=== PATIENT | female | born 1960 | race Caucasian/White ===

== ENCOUNTER 2018-04-12 08:28 | Inpatient (IN) ==
[2018-04-12] MEDS ORDERED: NS 1,000 ML IV ONE ×2 (09:07→18:00)
[2018-04-12] MEDS ORDERED: INSULIN REGULAR, HUMAN 100 UNIT/ML INJECTION IVP ONE (09:09)
--- NOTE | 2018-04-12 09:12 | Emergency Department Report ---
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 Pt was at [facility] earlier today, when she got into a verbal altercation with a co-worker. Pt became dyspneic, had palpitations, and her vision darkened. She has had sx like this before; several months ago, she had a similar incident and a subsequent cath, without significant disease. Recently, pt has had similar sx; she is under a lot of stress at home and work. 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 MD complaint: chest pain Occurred At: work Onset (ago): minute(s) Duration: now resolved Onset: during exertion Severity: similar to previous episodes Relieving factors: rest Exacerbating factors: exertion Treatments prior to arrival chest pain: none - Related Data On Oral Contraceptives: No Home Medications Medication Instructions Recorded Confirmed Insulin Glargine,Hum.rec.anlog 60 unit SQ DAILY #0 02/04/11 04/12/18 [Lantus] Aspirin [Adult Aspirin Regimen] 81 mg PO DAILY 04/12/18 04/12/18 Chlorthalidone [Hygroton] 25 mg PO DAILY 04/12/18 04/12/18 Insulin Aspart [NovoLOG] 9 - 15 unit SQ TIDWM 04/12/18 04/12/18 Liraglutide [Victoza 3-Johnny] 1 dose SQ DAILY 04/12/18 04/12/18 Lisinopril [Prinivil] 40 mg PO DAILY 04/12/18 04/12/18 Lovastatin [Mevacor] 40 mg PO HS 04/12/18 04/12/18 Paroxetine [Paxil] 20 mg PO HS 04/12/18 04/12/18 Allergies Allergy/AdvReac Type Severity Reaction Status Date / Time Penicillins Allergy Unknown Verified 04/12/18 08:35 Review of Systems All systems: reviewed and negative except as stated Cardiovascular: Reports: as per HPI, chest pain, palpitations, dyspnea on exertion, syncope. Denies: orthopnea, edema, paroxysmal nocturnal dyspnea Neurological: Reports: as per HPI, other (Pre-syncope). Denies: headache, weakness, numbness, paresthesias, confusion, abnormal gait, vertigo [facility] Medical History Updates: HTN. HL. DM. Depression Physical Exam - Limitations Limitations: no limitations - General General appearance: alert, in no apparent distress, obese (Morbid) - Normal Exams: Head:: Normocephalic without trauma Eyes:: Pupils are PERRLA w/ EOMI, No scleral icterus, irritation, or foreign bodies noted ENMT:: No facial trauma, nasal exudates, pharyngeal erythema, or exudates are noted Neck:: Full range of motion, without adenopathy Lymphatic:: No lymphadenopathy Musculoskeletal:: No tenderness, or deformity noted Integumentary:: No rashes, hives, or bruising noted Neurological:: Patient is alert, and oriented - Chest Chest inspection: Present: normal inspection, symmetric chest wall rise. Absent : tenderness - Respiratory Respiratory exam: Present: normal lung sounds bilaterally. Absent: respiratory distress, wheezes, stridor, prolonged expiratory phase, crackles - Cardiovascular Cardiovascular exam: Present: bradycardia, irregular rhythm, normal heart sounds. Absent: regular rate, normal rhythm, rubs, gallop, clicks - Abdominal Exam Abdominal exam: Present: soft, normal bowel sounds. Absent: distention, tenderness, guarding, rebound, rigidity Course - Consultations Consultation #1: Dr. Toussaint: Admit pt obs for further workup. Time: 10:10 Vital Signs Temperature 98.7 F 04/12/18 08:29 Pulse Rate 48 L 04/12/18 08:29 Respiratory Rate 27 H 04/12/18 08:29 Blood Pressure 186/68 H 04/12/18 08:29 Pulse Oximetry 97 04/12/18 08:29 Temperature 98.7 F 04/12/18 08:29 Pulse Rate 48 L 04/12/18 08:29 Respiratory Rate 27 H 04/12/18 08:29 Blood Pressure 186/68 H 04/12/18 08:29 Pulse Oximetry 97 04/12/18 08:29 Chest Pain - MDM Narrative Medical decision making narrative: Pt with new-onset Mobitz II heartblock and RBB. After discussion with cardiology , will admit for further workup. - Differential Diagnosis Likely: pneumothorax, stable angina, unstable angina pectoris, atypical chest pain, costochondritis, chest pain, biliary colic - Medical Records Data Attestation: I reviewed the patient's medical records. - Lab Data Attestation: I reviewed the patient's lab results. Result diagrams: 04/12/18 08:58 04/12/18 08:58 Lab Results 04/12/18 Range/Units 08:55 Glucometer 357 (65-110) mg/dL - Radiology Data Attestation: I reviewed the patient's radiology results. CXR: Impression: No acute cardiopulmonary abnormality. - EKG Data EKG #1 EKG attestation: Yes: I reviewed and interpreted this EKG. EKG shows normal: sinus rhythm, axis, QRS complexes, ST-T waves Rate: bradycardia Heart block present: Mobitz 2 (1:1 and 2:1 block) Disposition Clinical Impression: Mobitz II, RBBB Disposition: 02 To [facility] Print Language: Portuguese Condition: Improved Prescriptions: No Action Lovastatin [Mevacor] 40 mg PO HS Aspirin [Adult Aspirin Regimen] 81 mg PO DAILY Insulin Aspart [NovoLOG] 9 - 15 unit SQ TIDWM Lisinopril [Prinivil] 40 mg PO DAILY Chlorthalidone [Hygroton] 25 mg PO DAILY Insulin Glargine,Hum.rec.anlog [Lantus] 60 unit SQ DAILY #0 Paroxetine [Paxil] 20 mg PO HS Liraglutide [Victoza 3-Johnny] 1 dose SQ DAILY Referrals: Donnell Almeida DO [Primary Care Provider] - Time of Disposition: 10:27 - Seen By: physician
[2018-04-12] MEDS: SALINE FLUSH 10ml SYRINGE IVF PRN (09:18)
--- NOTE | 2018-04-12 10:09 | XRay Report ---
Indication: Dysrhythmia XR chest 1V: Comparison: None Technique: AP portable upright chest Findings: Patient showed normal heart, mediastinum and central vascularity. Lungs are clear. No acute bony findings are seen although patient does shows some mild hypertrophic bony changes in the mid and lower thoracic spine. Impression: No acute cardiopulmonary abnormality. .
--- NOTE | 2018-04-12 11:06 | Cardiology History & Physical ---
History of Present Illness Chief complaint: chest pain HPI: Annamaria is a 57 year old woman who presented to the ED this morning for evaluation of chest pain. She was working at [employer] earlier today, when she got into a verbal altercation with a co-worker. She became dyspneic, had palpitations, and her vision darkened. She has had symptoms like this before; several months ago, she had a similar incident and a subsequent cath, without significant disease. She reportedly is under a lot of stress at home and work. 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 EKG revealed 2:1 heart block, Dr. Toussaint was contacted for outpatient admission for possible permanent pacemaker insertion. She denies recent illness, fever, chills, cough, sore throat, N/V/D, dysuria. States she is to have a CT scan for an umbilical hernia repair. Review of Systems - Constitutional Constitutional: Absent: chills, fatigue, fever(s) - EENMT Eyes: Absent: change in vision Balance: Absent: vertigo Mouth/Throat: Absent: sore throat - Cardiovascular Cardiovascular: Present: chest pain, palpitations, syncope (near), dyspnea on exertion. Absent: orthopnea, edema, heart murmur Rhythm: Absent: abnormal rhythm Vascular: Absent: pedal edema - Respiratory Respiratory: Present: dyspnea on exertion. Absent: cough - Gastrointestinal Gastrointestinal: Absent: abdominal pain, constipation, diarrhea, nausea, vomiting - Genitourinary Genitourinary: Absent: dysuria - Integumentary/Breasts Integumentary: Absent: rash - Neurological Neurological: Absent: dizziness - Endocrine Endocrine: Present: palpitations [facility] Medical History Updates: HTN. HL. DM. Depression Surgical History: hysterectomy Family History: Mother - [place], cause of in her 50s No family history of arrhythmias/ PPMs - Social History Smoking status: Never smoker Substance use type: does not use Alcohol intake frequency: does not drink Household members: spouse Current occupational status: employed Current residence: Apartment/Private Home Medications Home Medications Medication Instructions Recorded Confirmed Type Insulin Glargine,Hum.rec.anlog 60 unit SQ DAILY #0 02/04/04/12/18 History [Lantus] Aspirin [Adult Aspirin Regimen] 81 mg PO DAILY 04/12/18 04/12/18 History Chlorthalidone [Hygroton] 25 mg PO DAILY 04/12/18 04/12/18 History Insulin Aspart [NovoLOG] 9 - 15 unit SQ TIDWM 04/12/18 04/12/18 History Liraglutide [Victoza 3-Johnny] 1 dose SQ DAILY 04/12/18 04/12/18 History Lisinopril [Prinivil] 40 mg PO DAILY 04/12/18 04/12/18 History Lovastatin [Mevacor] 40 mg PO HS 04/12/18 04/12/18 History Paroxetine [Paxil] 20 mg PO HS 04/12/18 04/12/18 History CephALEXin [Keflex 500 mg] 500 mg PO Q12HR #10 cap 04/14/18 Rx Metoprolol Tartrate [Lopressor] 12.5 mg PO BIDWM #30 tab 04/14/18 Rx Minocycline [Minocin] 100 mg PO BID #14 cap 04/14/18 Rx Nitroglycerin [Nitrostat] 0.4 mg SL Q5M PRN #25 tab 04/14/18 Rx Allergies Allergy/AdvReac Type Severity Reaction Status Date / Time Penicillins Allergy Unknown Verified 04/12/18 08:35 Exam Vital signs: Temperature 98.7 F 04/12/18 08:29 Pulse Rate 42 L 04/12/18 10:45 Respiratory Rate 11 04/12/18 10:45 Blood Pressure 161/67 H 04/12/18 10:45 Pulse Oximetry 100 04/12/18 10:45 - Constitutional no acute distress, obese, cooperative - Routine HEENT Exam Head: Present: normocephalic ENT: Present: mucous membranes dry - Routine Neck Exam Absent: JVD, carotid bruit - Routine Chest/Breast/Axilla Exam Chest wall: Absent: tenderness, pacemaker - Routine Respiratory Exam Present: CTA bilaterally, diminished air movement. Absent: dyspnea - Routine Cardiovascular Exam Present: no murmur, bradycardia - Routine Abdominal Exam Present: soft, non tender - Routine Extremities Exam Present: no edema, pulses intact - Routine Skin Exam Present: intact, dry, warm - Routine Neurological Exam Present: alert, oriented X3 - Routine Psychiatric Exam Present: normal affect, normal thought process Results 04/14/18 04:00 04/14/18 04:00 - Imaging and Cardiology Imaging & Cardiology Narrative: Date of Exam: 04/12/18 Ordering Provider: Augustus Santiago DO Type of Exam(s): XR chest 1V Reason for Exam(s): Dysrhythmia Indication: Dysrhythmia XR chest 1V: Comparison: None Technique: AP portable upright chest Findings: Patient showed normal heart, mediastinum and central vascularity. Lungs are clear. No acute bony findings are seen although patient does shows some mild hypertrophic bony changes in the mid and lower thoracic spine. Impression: No acute cardiopulmonary abnormality. 04/12/18 11:09 EKG interpretations - Blocks, axis, hypertrophy, ST abn AV and intraventricular conduction: 2 to 1 AV block, right bundle branch block ( fixed/intermittent, complete/incomplete) Hospital Course This is a general summary of the patient's hospital course. For more details refer to the complete medical record. Time spent with patient: 25 - 35 minutes Resuscitation Status: Full Code Assessment and Plan - Attestation Attestation Narrative: 04/14/18 18:12 Recommendation After examining the patient I agree with the above assessment. I am involved in the formulation of the patient's plan of care. - Assessment and Plan (1) Second-degree heart block Current visit: Yes Status: Acute 2:1 second degree heart block - Hemodynamically stable, admit to the Surgical unit - Keep NPO for dual chamber PPM this after noon - No BB or CCB - Monitor cardiac telemetry (2) Essential (primary) hypertension Current visit: Yes Status: Chronic suboptimal control - Hydralazine 10mg IV q6h prn systolic BP>180 - will continue Lisinopril 40mg and Chlorthalidone 25mg post PPM (3) Mixed hyperlipidemia Current visit: Yes Status: Chronic Continue Lovastatin, PCP manages (4) Type 2 diabetes mellitus without complications Current visit: Yes Status: Chronic Continue Lantus and Victoza post PPM - BGMs as taken at home
[2018-04-12 11:30] VITALS: BMI 40.8
[2018-04-12] MEDS ORDERED: HYDRALAZINE 20 MG/ML INJECTION IVP PRN (11:37)
[2018-04-12] MEDS ORDERED: HEPARIN 1,000 UNITS/500 ML PREMIX (*CVL ONLY*) IV ONE (16:59)
[2018-04-12] MEDS ORDERED: LIDOCAINE 1% (10mg/ml) 30ml SDV INJ ONE (17:00)
[2018-04-12] MEDS ORDERED: MIDAZOLAM 2mg/2ml INJECTION ONE (17:10)
[2018-04-12] MEDS ORDERED: FentaNYL 100 MCG/2 ML INJECTION ONE (17:10)
[2018-04-12] MEDS ORDERED: HEPARIN 1,000unit/ml INJECTION 10ml ONE (17:11)
[2018-04-12] MEDS ORDERED: Verapamil 5 MG/2 ML VIAL ONE (17:11)
[2018-04-12] MEDS ORDERED: NITROGLYCERIN 50MG INJECTION IV ONE (17:11)
[2018-04-12] MEDS ORDERED: NS 1,000 ML ONE (17:25)
[2018-04-12] MEDS ORDERED: NITROGLYCERIN 0.4 MG SUBLINGUAL TABLET SL PRN (18:09)
[2018-04-12] MEDS ORDERED: BISACODYL 10 MG SUPPOSITORY RECTALLY PRN (18:09)
[2018-04-12] MEDS ORDERED: MORPHINE SULFATE 4mg INJECTION IVP PRN ×2 (18:09)
[2018-04-12] MEDS ORDERED: LORazepam 0.5 MG TABLET PO PRN (18:09)
[2018-04-12] MEDS ORDERED: ATROPINE 1 MG/ML INJECTION IVP PRN (18:09)
[2018-04-12] MEDS ORDERED: HYDROCODONE/APAP 5mg/325mg TABLET PO PRN (18:09)
[2018-04-12] MEDS ORDERED: ONDANSETRON 4 MG/2 ML INJECTION IVP PRN (18:09)
[2018-04-12] MEDS ORDERED: MAG-AL + SIM ORAL LIQUID 30ml PO PRN (18:09)
[2018-04-12] MEDS ORDERED: METOCLOPRAMIDE 10mg/2ml INJECTION IVP PRN (18:09)
[2018-04-12] MEDS ORDERED: PROMETHAZINE 25 MG INJECTION IVP PRN (18:09)
[2018-04-12] MEDS ORDERED: Bisacodyl EC TAB 5 MG TABLET PO PRN (18:09)
[2018-04-12] MEDS: INSULIN ASPART 100unit/ml INJECTION SQ SCH (18:26)
[2018-04-12] MEDS: ACETAMINOPHEN 325 MG TABLET PO PRN (18:43)
[2018-04-12] MEDS: PAROXETINE 20 MG TABLET PO SCH (21:27)
[2018-04-12] MEDS: LOVASTATIN 40 MG TABLET PO SCH (21:27)
--- NOTE | 2018-04-13 07:39 | Echocardiogram ---
DATE OF PROCEDURE: April 12, 2016 This is a two-dimensional echo with spectral Doppler, color-flow and M-mode. It was obtained in a patient with heart block and non-STEMI. Left atrial dimension is normal. Left ventricular end-diastolic dimension is normal. Left ventricle wall thickness is increased. LV systolic function is normal with ejection fraction of 57%. Right atrium is normal. Right ventricle is normal. Aortic root dimension is normal. Mitral valve is morphologically normal with mild mitral regurgitation. Aortic valve shows fibrocalcific changes with no stenosis. Qzcy-mi-rihszqbt aortic insufficiency is present. Tricuspid valve shows mild tricuspid regurgitation with moderate pulmonary hypertension with estimated pulmonary artery systolic pressure of 50. Pulmonary valve shows trace of pulmonary insufficiency. There is no pericardial effusion. IMPRESSION 1. Normal LV systolic function with ejection fraction of 57%. 2. Mild left ventricular hypertrophy. 3. Mild mitral regurgitation. 4. Aortic sclerosis with [id number]-[id number] aortic insufficiency. 5. Mild tricuspid regurgitation with moderate pulmonary hypertension with estimated pulmonary artery systolic pressure of 50. 6. Trace of pulmonary insufficiency. MTDD
--- NOTE | 2018-04-13 07:48 | Cardiac Catheterization Report ---
DATE OF PROCEDURE April 12, 2018 The patient is a 57-year-old lady who was admitted with chest pressure, tightness and a heart block and ruled in for non-STEMI and was referred for further evaluation by cardiac catheterization and possible intervention. Informed consent was obtained after explaining the procedure and the potential risks to the patient who agreed to proceed with the procedure. PROCEDURE 1. Left heart catheterization. 2. Coronary angiography. 3. Left ventriculography. TECHNIQUE The patient was prepped and draped in the usual sterile techniques. Conscious sedation was performed using Versed and fentanyl. 1% lidocaine was used for local anesthesia. Using modified Seldinger technique, arterial access was obtained into the right radial artery with placement of a 6-Zambian arterial sheath. LEFT VENTRICULOGRAPHY Left ventriculography in single-plane ESPITIA shallow projection showed anteroapical akinesia with ejection fraction of about 40% with no mitral regurgitation or gradient across the aortic valve. LVEDP was about 8. CORONARY ANGIOGRAPHY Left main was short and free of significant lesions and bifurcated into left anterior descending and left circumflex arteries. Left anterior descending artery was a vkhql-vv-[id number] caliber vessel which had diffuse irregularities in mid segment with about 20-30% stenosis. Diagonals were small with no significant lesions. Left circumflex artery was nondominant with diffuse disease in mid segment of up to about 30% stenosis. It was nondominant. Right coronary artery was dominant and a [id number] caliber vessel with about 30 % mid stenosis. The patient tolerated the procedure well with no complications. IMPRESSION 1. Anteroapical akinesia with ejection fraction of about 40%. 2. Mild coronary artery disease as described above. PLAN Medical management. SAIMA
[2018-04-13] MEDS: INSULIN ASPART 100unit/ml INJECTION SQ SCH ×3 (07:59→17:06)
[2018-04-13] MEDS ORDERED: NS FLUSH BAG 500ml IV PRN (09:15)
[2018-04-13] MEDS: SALINE FLUSH 10ml SYRINGE IVF PRN (09:16)
--- NOTE | 2018-04-13 09:16 | Consult Note ---
Consult Information - Data of Consult Consult date: 04/13/18 Requesting Physician: Placido Toussaint MD Primary Care Provider: Donnell Almeida DO Family Provider: Dr Almeida - Consult Narrative Reason for consult: UTI History of present illness: And is a 57-year-old female who presented to the emergency room yesterday for evaluation of chest pain. She had had a verbal altercation with a coworker that triggered shortness of breath, palpitations and chest pain. She had acute evaluation in the emergency room and was found to have a new onset Mobitz 2 heart block with a right bundle branch block. She was admitted under Dr. Toussaint for further cardiac care. Have elevation in troponin course of the afternoon will result in the left cardiac catheterization. This revealed mild coronary artery disease, ECHO showed ER 57%. Plan for pacemaker placement of pacemaker today. She was noted to have bacteriuria, and urine culture did reveal Escherichia coli. Given this finding, the hospitalist services were consult could for medical evaluation and recommendations. Studies from today are reviewed, white count is normal at 7.9, chemistry panel overall unremarkable. Glucose has been elevated intermittently, can sugar this morning was 205. Past Medical History Medical History Updates: Hypertension. Diabetes. Hyperlipidemia. 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 history: PCP Dr Almeida Review of Systems All systems PM: 10-point ROS was reviewed, no additional remarkable complaints except Review of systems: Denies ROS Medications Home Medications Medication Instructions Recorded Confirmed Type Insulin Glargine,Hum.rec.anlog 60 unit SQ DAILY #0 02/04/11 04/12/18 History [Lantus] Aspirin [Adult Aspirin Regimen] 81 mg PO DAILY 04/12/18 04/12/18 History Chlorthalidone [Hygroton] 25 mg PO DAILY 04/12/18 04/12/18 History Insulin Aspart [NovoLOG] 9 - 15 unit SQ TIDWM 04/12/18 04/12/18 History Liraglutide [Victoza 3-Johnny] 1 dose SQ DAILY 04/12/18 04/12/18 History Lisinopril [Prinivil] 40 mg PO DAILY 04/12/18 04/12/18 History Lovastatin [Mevacor] 40 mg PO HS 04/12/18 04/12/18 History Paroxetine [Paxil] 20 mg PO HS 04/12/18 04/12/18 History Allergies Allergy/AdvReac Type Severity Reaction Status Date / Time Penicillins Allergy Unknown Verified 04/12/18 08:35 Exam Vital Signs: Temperature 97.8 F 04/13/18 07:57 Pulse Rate 53 L 04/13/18 07:57 Respiratory Rate 16 04/13/18 07:57 Blood Pressure 135/67 04/13/18 07:57 Pulse Oximetry 96 04/13/18 07:57 Height/Weight/BMI: Height 1.73 m Weight 120.6 kg Body Mass Index 40.8 - Constitutional Present: no acute distress, well nourished, well developed - Routine HEENT Exam Eye: Present: EOMI ENT: Present: mucous membranes moist, dentition normal - Routine Respiratory Exam Present: CTA bilaterally. Absent: wheezes - Routine Cardiovascular Exam Present: RRR, S1, S2. Absent: murmur - Routine Abdominal Exam Present: soft, normoactive bowel sounds, non distended. Absent: tenderness - Routine Extremities Exam Present: no edema, pulses intact - Routine Back/Spine/Pelvis Exam Back/Spine: Present: full ROM - Routine Skin Exam Present: intact, dry, warm - Routine Neurological Exam Present: alert, oriented X3, CN II-XII intact, moving all extremities - Routine Psychiatric Exam Present: normal affect, normal thought process, cooperative Results - Labs CBC & Chem 7: 04/13/18 04:18 04/13/18 04:18 Microbiology Results: Microbiology 04/12/18 10:55 Urine, Voided (Cc/notcc) Urine Culture - Preliminary Escherichia coli Assessment and Plan (1) Fernandoitz II Current visit: Yes Status: Acute Assessment and Plan: Impression UTI- E-Coli No evidence of SIRS/Sepsis at this time Leukocytosis (POA) - resolved Mobitz II New RBBB Elevated Troponin DM HTN Hyperlipidemia Morbid obesity Plan Cardiology care as per Dr Toussaint. At this point they are planning for placement of Pacemaker. Although patient repots she is asymptomatic regarding bacteruria however, will initiate treatment as she is having invasive procedure today. Obtain Blood cultures x2 and Start Rocephin 1 gm IV daily for treatment. Check on pending urine culture. No evidence of acute sepsis process- No Leukocytosis or fever. Obtain Hgb A1C given hyperglycemia. Continue on Novalog with meals, Victoza, Lantus 60 units daily. Case reviewed with attending, Dr Krishna The hospitalist service will continue to follow patishira during her stay at [facility]. At time of discharge medical care will return to PCP Dr Almeida at [facility]. - Physician Narrative Physician: Lee Krishna MD Narrative: Date: 04/13/18 Time: 1429 Have independently interviewed and examined pt. Chart reviewed. Case discussed with my HULL AND DECK REMOVER. Care plan developed with my supervision; agree with above. Back from pacemaker placement-tolerated procedure well. Notes discomfort to shoulder from pacemaker placement. Breathing feels well-not short of breathing or congested. Slight nausea but no ab pain. No f/c. Lungs: decreased, no distress CV: regular AB: soft obese nt MSE: awake alert appropriate Plan: Rocephin given for urinary coverage-check C/S. No signs of SIRS/sepsis. Recheck CBC in am. Hospital Course Summary Disclaimer: The visit summary below is not to be considered part of the above Progress Note. Hospital Course: Impression Mobitz II New RBBB Elevated Troponin UTI- E-Coli DM HTN Hyperlipidemia Obesity Plan Cardiology care as per Dr Toussaint At this point they are planning for placement of Pacemaker Although patient repots she is asymptomatic regarding bacteruria however, will initiate treatment as she is having invasive procedure today Obtain Blood cultures x2 and Start Rocephin 1 gm IV daily for treatment. No evidence of acute sepsis process- No Leukocytosis or fever. Obtain Hgb A1C given hyperglycemia. Continue on Novalog with meals, Victoza, Lantus 60 units daily. Case reviewed with attending, Dr Krishna The hospitalist service will continue to follow patishira during her stay at [facility]. At time of discharge medical care will return to PCP Dr Almeida at [facility]
[2018-04-13] MEDS: CEFTRIAXONE 1 G in NS 100 ML IV SCH (09:17)
[2018-04-13] MEDS: LIRAGLUTIDE INJECTABLE PEN SQ SCH (09:24)
[2018-04-13] MEDS: INSULIN GLARGINE 100unit/ml INJECTION SQ SCH (09:24)
[2018-04-13] MEDS: CHLORTHALIDONE 25 MG TABLET PO SCH (09:24)
[2018-04-13] MEDS: ASPIRIN *EC* 81 MG TABLET PO SCH (09:24)
[2018-04-13] MEDS: LISINOPRIL 40 MG TABLET PO SCH (09:25)
--- NOTE | 2018-04-13 10:21 | Cardiology Progress Note ---
<Nyla Mckenna M - Last Filed: 04/14/18 12:28> Subjective Principal diagnosis: 2:1 Av block Interval history: Patient is seen in follow up for 2:1 heart block and NSTEMI. Planned PPM yesterday afternoon was delayed for left heart cath due to troponin of 0.973 at 1446. Mild CAD with multivessel lesions of 20-30% seen. She denies chest pain or pressure. Exam Vital signs: Temperature 97.8 F 04/13/18 07:57 Pulse Rate 53 L 04/13/18 07:57 Respiratory Rate 16 04/13/18 07:57 Blood Pressure 135/67 04/13/18 07:57 Pulse Oximetry 96 04/13/18 07:57 Inpatient Medications: Generic Name Dose Route Start Last Admin Trade Name Freq PRN Reason Stop Dose Admin Acetaminophen 325 - 650 mg 04/12/18 18:09 04/12/18 18:43 Tylenol PO 650 mg Q5H PRN Administration Pain Hydrocodone Bitart/Acetaminophen 1 - 2 tab 04/12/18 18:09 [place] 5/325 PO Q5H PRN Pain Al Hydroxide/Mg Hydroxide 30 ml 04/12/18 18:09 Maalox Plus PO Q3H PRN Indigestion Aspirin 81 mg 04/13/18 09:00 04/13/18 09:24 Ecotrin PO Not Given DAILY MARCOS Atropine Sulfate 0.5 mg 04/12/18 18:09 Atropine IVP Q5M PRN Bradycardia Bisacodyl 5 - 10 mg 04/12/18 18:09 Dulcolax PO DAILY PRN Constipation Bisacodyl 10 mg 04/12/18 18:09 Dulcolax RECTALLY DAILY PRN Constipation Chlorthalidone 25 mg 04/13/18 09:00 04/13/18 09:24 [place] PO Not Given DAILY MARCOS Hydralazine HCl 10 mg 04/12/18 11:37 Apresoline IVP Q6H PRN Ceftriaxone Sodium 1 g/ Sodium 100 mls @ 200 mls/hr 04/13/18 08:45 04/13/18 09:57 Chloride IV Infused Q24H [facility] Infusion Insulin Aspart 9 - 15 unit 04/12/18 17:30 04/13/18 07:59 Novolog SQ Not Given TIDWM [facility] Insulin Glargine 60 unit 04/13/18 09:00 04/13/18 09:24 Lantus SQ Not Given DAILY MARCOS Liraglutide 1.8 mg 04/13/18 09:00 04/13/18 09:24 Victoza SQ Not Given DAILY MARCOS Lisinopril 40 mg 04/13/18 09:00 04/13/18 09:25 Prinivil PO Not Given DAILY MARCOS Lorazepam 0.5 - 1 mg 04/12/18 18:09 Ativan Inj IVP Q4H PRN Anxiety Lorazepam 0.5 - 1 mg 04/12/18 18:09 Ativan PO Q4H PRN Anxiety Lovastatin 40 mg 04/12/18 21:00 04/12/18 21:27 Mevacor PO 40 mg HS [facility] Administration Magnesium Hydroxide 30 ml 04/12/18 18:09 Mom PO DAILY PRN Constipation Metoclopramide HCl 5 - 10 mg 04/12/18 18:09 Reglan IVP Q6H PRN Nausea &/or vomiting Morphine Sulfate 2 - 4 mg 04/12/18 18:09 Morphine Sulfate Inj IVP 04/13/18 18:08 Q2H PRN Pain Morphine Sulfate 2 - 4 mg 04/12/18 18:09 Morphine Sulfate Inj IVP Q5M PRN Angina Nitroglycerin 0.4 mg 04/12/18 18:09 Nitrostat SL Q5M PRN Angina Ondansetron HCl 4 mg 04/12/18 18:09 Zofran IVP Q6H PRN Nausea &/or vomiting Paroxetine HCl 20 mg 04/12/18 21:00 04/12/18 21:27 Paxil PO 20 mg HS [facility] Administration Promethazine HCl 12.5 - 25 mg 04/12/18 18:09 Phenergan Inj IVP Q6HR PRN Nausea &/or vomiting Sodium Chloride 10 - 80 ml 04/12/18 09:07 04/13/18 09:16 Iv Flush IVF 10 ml PRN PRN Administration Flushing Sodium Chloride 500 ml 04/13/18 09:15 04/13/18 09:17 Normal Saline IV 500 ml PRN PRN Administration Discontinued Medications Generic Name Dose Route Start Last Admin Trade Name Freq PRN Reason Stop Dose Admin Sodium Chloride 1,000 mls @ 1,000 mls/hr 04/12/18 09:07 04/12/18 10:18 Normal Saline IV 04/12/18 10:06 Infused .Q1H ONE Infusion Vancomycin HCl 1,750 mg/ 500 mls @ 250 mls/hr 04/12/18 13:55 04/12/18 18:14 Sodium Chloride IV 04/12/18 13:56 Not Given PREOP ONE Sodium Chloride 1,000 mls @ 75 mls/hr 04/12/18 18:00 04/13/18 06:11 Normal Saline IV 04/13/18 07:19 Infused .[id number] ONE Infusion Insulin Human Regular 10 unit 04/12/18 09:09 04/12/18 09:18 Novolin R IVP 04/12/18 09:10 10 unit O ONE Administration - Constitutional no acute distress, well nourished, cooperative - Routine HEENT Exam Head: Present: normocephalic ENT: Present: mucous membranes dry - Routine Neck Exam Absent: JVD, carotid bruit - Routine Chest/Breast/Axilla Exam Chest wall: Absent: tenderness, pacemaker - Routine Respiratory Exam Present: CTA bilaterally. Absent: dyspnea, rales, wheezes - Routine Cardiovascular Exam Present: no murmur, bradycardia - Routine Abdominal Exam Present: soft, non tender - Routine Extremities Exam Present: no edema - Routine Skin Exam Present: intact, dry, warm - Routine Neurological Exam Present: alert, oriented X3 - Routine Psychiatric Exam Present: normal affect, normal thought process Results 04/14/18 04:00 04/14/18 04:00 Cardiac Enzymes 04/12/18 04/12/18 04/13/18 Range/Units 14:46 21:21 04:18 Troponin I 0.973 H D 0.962 H 0.499 H (0-0.12) ng/ml Lipids 04/13/18 Range/Units 04:18 Triglycerides 122 (35-135) mg/dL Cholesterol 194 (132-199) mg/dL HDL Cholesterol 42 (40-60) mg/dL Cholesterol/HDL Ratio 4.6 H (0-4.0) RATIO CBC 04/13/18 Range/Units 04:18 WBC 7.9 (4.5-11.0) T/MM3 RBC 4.48 (4.00-5.20) M/MM3 Hgb 12.4 (12-16) GM/DL Hct 38.6 (36-46) % Plt Count 261 (130-400) T/MM3 Neut # (Auto) 4.3 (1.8-7.7) T/MM3 Lymph # (Auto) 2.9 (1-4.8) T/MM3 [place] # (Auto) 0.6 (0-0.8) T/MM3 Eos # (Auto) 0.2 (0-0.5) T/MM3 Baso # (Auto) 0.0 (0-0.2) T/MM3 Comprehensive Metabolic Panel 04/13/18 Range/Units 04:18 Sodium 140 (136-146) MEQ/L Potassium 4.7 (3.6-5) MEQ/L Chloride 105 (98-107) MEQ/L Carbon Dioxide 27 (22-30) MEQ/L BUN 15.0 (7-17) MG/DL Creatinine 0.6 L (0.7-1.2) mg/dL Glucose 205 H (65-110) MG/DL Calcium 8.4 D (8.4-10.2) MG/DL Intake and Output 04/12/18 04/13/18 04/13/18 22:59 06:59 14:59 Intake Total 150 / 150 913.75 / 913.75 100 / 100 Output Total 1075 / 1075 300 / 300 Balance 150 / 150 -161.25 / -161.25 -200 / -200 Intake: IV 913.75 / 913.75 100 / 100 Ceftriaxone 1 g In Ns 100 ml @ 100 / 100 200 mls/hr IV Q24H [facility] Rx#: [id number] Ns 1,000 ml @ 75 mls/hr IV . 913.75 / 913.75 [id number] ONE Rx#:[id number] Oral 150 / 150 Output: Urine 1075 / 1075 300 / 300 Other: Urine Appearance Clear Clear Cloudy Urine Color Yellow Yellow Yellow Urine Odor Normal Strong Normal # Voids 1 Weight 265 lb 14.04 oz Patient Weight 04/14/18 06:59 Weight 265 lb 14.04 oz - Imaging and Cardiology Imaging & Cardiology Narrative: Date of Exam: 04/12/18 Type of Exam(s): CA cardiovascular procedures DATE OF PROCEDURE April 12, 2018 The patient is a 57-year-old lady who was admitted with chest pressure, tightness and a heart block and ruled in for non-STEMI and was referred for further evaluation by cardiac catheterization and possible intervention. Informed consent was obtained after explaining the procedure and the potential risks to the patient who agreed to proceed with the procedure. PROCEDURE 1. Left heart catheterization. 2. Coronary angiography. 3. Left ventriculography. TECHNIQUE The patient was prepped and draped in the usual sterile techniques. Conscious sedation was performed using Versed and fentanyl. 1% lidocaine was used for local anesthesia. Using modified Seldinger technique, arterial access was obtained into the right radial artery with placement of a 6-[place] arterial sheath. LEFT VENTRICULOGRAPHY Left ventriculography in single-plane ESPITIA shallow projection showed anteroapical akinesia with ejection fraction of about 40% with no mitral regurgitation or gradient across the aortic valve. LVEDP was about 8. CORONARY ANGIOGRAPHY Left main was short and free of significant lesions and bifurcated into left anterior descending and left circumflex arteries. Left anterior descending artery was a moeno-hm-lvpzzn caliber vessel which had diffuse irregularities in mid segment with about 20-30% stenosis. Diagonals were small with no significant lesions. Left circumflex artery was nondominant with diffuse disease in mid segment of up to about 30% stenosis. It was nondominant. Right coronary artery was dominant and a adfovn-ju-fypna caliber vessel with about 30 % mid stenosis. The patient tolerated the procedure well with no complications. IMPRESSION 1. Anteroapical akinesia with ejection fraction of about 40%. 2. Mild coronary artery disease as described above. PLAN Medical management. 04/13/18 10:22 04/13/18 10:25 Date of Exam: 04/12/18 Type of Exam(s): US echo doppler complete DATE OF PROCEDURE: April 12, 2016 This is a two-dimensional echo with spectral Doppler, color-flow and M-mode. It was obtained in a patient with heart block and non-STEMI. Left atrial dimension is normal. Left ventricular end-diastolic dimension is normal. Left ventricle wall thickness is increased. LV systolic function is normal with ejection fraction of 57%. Right atrium is normal. Right ventricle is normal. Aortic root dimension is normal. Mitral valve is morphologically normal with mild mitral regurgitation. Aortic valve shows fibrocalcific changes with no stenosis. Foqx-pa-crgmyudt aortic insufficiency is present. Tricuspid valve shows mild tricuspid regurgitation with moderate pulmonary hypertension with estimated pulmonary artery systolic pressure of 50. Pulmonary valve shows trace of pulmonary insufficiency. There is no pericardial effusion. IMPRESSION 1. Normal LV systolic function with ejection fraction of 57%. 2. Mild left ventricular hypertrophy. 3. Mild mitral regurgitation. 4. Aortic sclerosis with xztc-pt-nddodurx aortic insufficiency. 5. Mild tricuspid regurgitation with moderate pulmonary hypertension with estimated pulmonary artery systolic pressure of 50. 6. Trace of pulmonary insufficiency. 04/14/18 12:30 Date of Exam: 04/13/18 Ordering Provider: Placido Toussaint MD Type of Exam(s): XR chest 1V Reason for Exam(s): ppm Indication: ppm Procedure: XR chest 1V: Encounter: Subsequent Comparison: 04/12/2018 Technique: A single portable AP chest radiograph was obtained. Findings: Life support devices: Placement of a left pectoral subclavian dual-chamber pacer device. Lungs and airways: Low lung volumes. No focal airspace consolidation. Normal pulmonary vasculature. Pleura: No pleural effusion or pneumothorax. Heart and mediastinum: The cardiomediastinal silhouette and great vessels are within normal limits. Osseous structures and soft tissues: No acute osseous abnormality is seen. Impression: Placement of a left pectoral subclavian dual-chamber pacer device with no complicating pneumothorax or other acute cardiopulmonary process identified. . Assessment and Plan - Assessment and Plan (1) NSTEMI (non-ST elevated myocardial infarction) Current visit: Yes Status: Acute Chest pain resolved before presentation - Troponin trending down:1) 0.973, 2) 0.962, 3)0.499 - EK:1 AV Block, RBBB - LHC 04/12/18: Left main was short and free of significant lesions and bifurcated into left anterior descending and left circumflex arteries. Left anterior descending artery was a zmqbu-jh-zxrnmu caliber vessel which had diffuse irregularities in mid segment with about 20-30% stenosis. Diagonals were small with no significant lesions. Left circumflex artery was nondominant with diffuse disease in mid segment of up to about 30% stenosis. It was nondominant. Right coronary artery was dominant and a vuqphq-un-ccvyp caliber vessel with about 30% mid stenosis. Anteroapical akinesia with ejection fraction of about 40%. - Continue Aspirin, ARB and Statin for medical management. - No BB due to 2:1 AV block (2) Second-degree heart block Current visit: Yes Status: Acute (3) Essential (primary) hypertension Current visit: Yes Status: Chronic (4) Mixed hyperlipidemia Current visit: Yes Status: Chronic (5) Type 2 diabetes mellitus without complications Current visit: Yes Status: Chronic - Assessment and Plan 04/12/18 Second-degree heart block Current visit: Yes Status: Acute - 2:1 second degree heart block - Hemodynamically stable, admit to the Surgical unit - Keep NPO for dual chamber PPM this after noon - No BB or CCB - Monitor cardiac telemetry (2) Essential (primary) hypertension Current visit: Yes Status: Chronic - suboptimal control - Hydralazine 10mg IV q6h prn systolic BP>180 - will continue Lisinopril 40mg and Chlorthalidone 25mg post PPM (3) Mixed hyperlipidemia Current visit: Yes Status: Chronic - Continue Lovastatin, PCP manages (4) Type 2 diabetes mellitus without complications Current visit: Yes Status: Chronic - Continue Lantus and Victoza post PPM - BGMs as taken at home 04/13/18 NSTEMI: Chest pain resolved before presentation - Troponin trending down:1) 0.973, 2) 0.962, 3)0.499 - EK:1 AV Block, RBBB - LHC 04/12/18: Left main was short and free of significant lesions and bifurcated into left anterior descending and left circumflex arteries. Left anterior descending artery was a nntyx-ds-vtpoie caliber vessel which had diffuse irregularities in mid segment with about 20-30% stenosis. Diagonals were small with no significant lesions. Left circumflex artery was nondominant with diffuse disease in mid segment of up to about 30% stenosis. It was nondominant. Right coronary artery was dominant and a kanubn-lb-jtusi caliber vessel with about 30% mid stenosis. Anteroapical akinesia with ejection fraction of about 40%. - Continue Aspirin, ARB and Statin for medical management. - No BB due to 2:1 AV block Second degree heart block: Plan PPM this afternoon as previously planned -Preliminary urine culture resulted E-Coli today, however patient denies fever , chills, urgency, frequency or painful urination and no Leukocytosis to indicate bacteremia, likely external contamination from voided specimen. - Consulted hospitalist for their assistance. (Thank you Judy and Dr. Krishna) Blood cultures and Rocephin 1gram IV ordered. Hospital Course Summary Disclaimer: The visit summary below is not to be considered part of the above Progress Note. Hospital Course: Impression [place] II New RBBB Elevated Troponin UTI- E-Coli DM HTN Hyperlipidemia Obesity Plan Cardiology care as per Dr Toussaint At this point they are planning for placement of Pacemaker Although patient repots she is asymptomatic regarding bacteruria however, will initiate treatment as she is having invasive procedure today Obtain Blood cultures x2 and Start Rocephin 1 gm IV daily for treatment. No evidence of acute sepsis process- No Leukocytosis or fever. Obtain Hgb A1C given hyperglycemia. Continue on Novalog with meals, Victoza, Lantus 60 units daily. Case reviewed with attending, Dr Krishna The hospitalist service will continue to follow yolanda during her stay at [facility]. At time of discharge medical care will return to PCP Dr Almeida at [facility] <Placido Toussaint - Last Filed: 04/14/18 18:13> Exam Vital signs: Temperature 98.8 F 04/14/18 15:00 Pulse Rate 71 04/14/18 16:00 Respiratory Rate 16 04/14/18 15:00 Blood Pressure 122/59 04/14/18 15:00 Pulse Oximetry 96 04/14/18 15:00 Inpatient Medications: Generic Name Dose Route Start Last Admin Trade Name Freq PRN Reason Stop Dose Admin Acetaminophen 325 - 650 mg 04/12/18 18:09 04/14/18 10:09 Tylenol PO 650 mg Q5H PRN Administration Pain Hydrocodone Bitart/Acetaminophen 1 - 2 tab 04/12/18 18:09 [place] 5/325 PO Q5H PRN Pain Al Hydroxide/Mg Hydroxide 30 ml 04/12/18 18:09 Maalox Plus PO Q3H PRN Indigestion Aspirin 81 mg 04/13/18 09:00 04/14/18 08:23 Ecotrin PO 81 mg DAILY MARCOS Administration Atropine Sulfate 0.5 mg 04/12/18 18:09 Atropine IVP Q5M PRN Bradycardia Bisacodyl 5 - 10 mg 04/12/18 18:09 Dulcolax PO DAILY PRN Constipation Bisacodyl 10 mg 04/12/18 18:09 Dulcolax RECTALLY DAILY PRN Constipation Cephalexin HCl 500 mg 04/15/18 09:00 Keflex 500 Mg PO 04/19/18 23:59 Q12HR MARCOS Chlorthalidone 25 mg 04/13/18 09:00 04/14/18 08:22 Hygro[place] PO 25 mg DAILY MARCOS Administration Hydralazine HCl 10 mg 04/12/18 11:37 Apresoline IVP Q6H PRN Insulin Aspart 9 - 15 unit 04/12/18 17:30 04/14/18 12:36 Novolog SQ 10 unit TIDWM [facility] Administration Insulin Glargine 60 unit 04/13/18 09:00 04/14/18 08:24 Lantus SQ 60 unit DAILY [facility] Administration Liraglutide 1.8 mg 04/13/18 09:00 04/14/18 08:23 Victoza SQ 1.8 mg DAILY [facility] Administration Lisinopril 40 mg 04/13/18 09:00 04/14/18 08:22 Prinivil PO 40 mg DAILY [facility] Administration Lorazepam 0.5 - 1 mg 04/12/18 18:09 Ativan Inj IVP Q4H PRN Anxiety Lorazepam 0.5 - 1 mg 04/12/18 18:09 Ativan PO Q4H PRN Anxiety Lovastatin 40 mg 04/12/18 21:00 04/13/18 21:00 Mevacor PO 40 mg HS [facility] Administration Magnesium Hydroxide 30 ml 04/12/18 18:09 Mom PO DAILY PRN Constipation Metoclopramide HCl 5 - 10 mg 04/12/18 18:09 Reglan IVP Q6H PRN Nausea &/or vomiting Metoprolol Tartrate 12.5 mg 04/14/18 12:37 04/14/18 13:08 Lopressor PO 12.5 mg BIDWM [facility] Administration Minocycline HCl 100 mg 04/14/18 09:00 04/14/18 08:23 Minocin PO 04/21/18 08:59 100 mg BID [facility] Administration Morphine Sulfate 2 - 4 mg 04/12/18 18:09 Morphine Sulfate Inj IVP Q5M PRN Angina Nitroglycerin 0.4 mg 04/12/18 18:09 Nitrostat SL Q5M PRN Angina Ondansetron HCl 4 mg 04/12/18 18:09 04/13/18 14:17 Zofran IVP 4 mg Q6H PRN Administration Nausea &/or vomiting Paroxetine HCl 20 mg 04/12/18 21:00 04/13/18 21:00 Paxil PO 20 mg HS [facility] Administration Promethazine HCl 12.5 - 25 mg 04/12/18 18:09 Phenergan Inj IVP Q6HR PRN Nausea &/or vomiting Sodium Chloride 10 - 80 ml 04/12/18 09:07 04/14/18 03:42 Iv Flush IVF 10 ml PRN PRN Administration Flushing Sodium Chloride 500 ml 04/13/18 09:15 04/13/18 09:17 Normal Saline IV 500 ml PRN PRN Administration Discontinued Medications Generic Name Dose Route Start Last Admin Trade Name Freq PRN Reason Stop Dose Admin Carvedilol 3.125 mg 04/14/18 12:31 Coreg PO BIDWM MARCOS Sodium Chloride 1,000 mls @ 1,000 mls/hr 04/12/18 09:07 04/12/18 10:18 Normal Saline IV 04/12/18 10:06 Infused .Q1H ONE Infusion Vancomycin HCl 1,750 mg/ 500 mls @ 250 mls/hr 04/12/18 13:55 04/12/18 18:14 Sodium Chloride IV 04/12/18 13:56 Not Given PREOP ONE Sodium Chloride 1,000 mls @ 75 mls/hr 04/12/18 18:00 04/13/18 06:11 Normal Saline IV 04/13/18 07:19 Infused .[id number] ONE Infusion Ceftriaxone Sodium 1 g/ Sodium 100 mls @ 200 mls/hr 04/13/18 08:45 04/14/18 09:23 Chloride IV Infused Q24H [facility] Infusion Vancomycin HCl 1,750 mg/ 500 mls @ 250 mls/hr 04/13/18 12:12 04/13/18 15:07 Sodium Chloride IV 04/13/18 12:13 Infused PREOP ONE Infusion Insulin Human Regular 10 unit 04/12/18 09:09 04/12/18 09:18 Novolin R IVP 04/12/18 09:10 10 unit O ONE Administration Morphine Sulfate 2 - 4 mg 04/12/18 18:09 Morphine Sulfate Inj IVP 04/13/18 18:08 Q2H PRN Pain Results 04/14/18 04:00 04/14/18 04:00 CBC 04/14/18 Range/Units 04:00 WBC 7.9 (4.5-11.0) T/MM3 RBC 4.57 (4.00-5.20) M/MM3 Hgb 13.1 (12-16) GM/DL Hct 39.1 (36-46) % Plt Count 256 (130-400) T/MM3 Neut # (Auto) 4.8 (1.8-7.7) T/MM3 Lymph # (Auto) 2.4 (1-4.8) T/MM3 [place] # (Auto) 0.6 (0-0.8) T/MM3 Eos # (Auto) 0.1 (0-0.5) T/MM3 Baso # (Auto) 0.0 (0-0.2) T/MM3 Comprehensive Metabolic Panel 04/14/18 Range/Units 04:00 Sodium 140 (136-146) MEQ/L Potassium 4.2 (3.6-5) MEQ/L Chloride 104 (98-107) MEQ/L Carbon Dioxide 26 (22-30) MEQ/L BUN 13.0 (7-17) MG/DL Creatinine 0.7 (0.7-1.2) mg/dL Glucose 220 H (65-110) MG/DL Calcium 8.8 (8.4-10.2) MG/DL Intake and Output 04/14/18 04/14/18 04/14/18 06:59 14:59 22:59 Intake Total 400 / 400 Output Total 250 / 250 1400 / 1400 Balance -250 / -250 400 / 400 -1400 / -1400 Intake: IV 100 / 100 Ceftriaxone 1 g In Ns 100 ml @ 100 / 100 200 mls/hr IV Q24H [facility] Rx#: [id number] Oral 300 / 300 Output: Urine 250 / 250 1400 / 1400 Other: Urine Appearance Clear Clear Cloudy Urine Color Pale Yellow Yellow Urine Odor Normal Normal # Voids 1 Assessment and Plan - Assessment and Plan (1) Second-degree heart block Current visit: Yes Status: Acute (2) Essential (primary) hypertension Current visit: Yes Status: Chronic (3) Mixed hyperlipidemia Current visit: Yes Status: Chronic (4) Type 2 diabetes mellitus without complications Current visit: Yes Status: Chronic - Attestation Attestation Narrative: 04/14/18 18:13 Recommendation After examining the patient I agree with the above assessment. I am involved in the formulation of the patient's plan of care. Hospital Course Summary Disclaimer: The visit summary below is not to be considered part of the above Progress Note.
[2018-04-13] MEDS ORDERED: CEFAZOLIN 1 G INJECTION ONE (12:22)
[2018-04-13] MEDS ORDERED: FentaNYL 100 MCG/2 ML INJECTION ONE (12:23)
[2018-04-13] MEDS ORDERED: LIDOCAINE 1% (10mg/ml) 30ml SDV INJ ONE (12:23)
[2018-04-13] MEDS ORDERED: SALINE FLUSH 10ml SYRINGE ONE (12:23)
[2018-04-13] MEDS ORDERED: MIDAZOLAM 2mg/2ml INJECTION ONE (12:23)
[2018-04-13] MEDS ORDERED: BACITRACIN 50,000 UNIT INJECTION ONE (12:24)
[2018-04-13] MEDS: ACETAMINOPHEN 325 MG TABLET PO PRN ×2 (14:16→18:29)
--- NOTE | 2018-04-13 14:25 | XRay Report ---
Indication: ppm Procedure: XR chest 1V: Encounter: Subsequent Comparison: 04/12/2018 Technique: A single portable AP chest radiograph was obtained. Findings: Life support devices: Placement of a left pectoral subclavian dual-chamber pacer device. Lungs and airways: Low lung volumes. No focal airspace consolidation. Normal pulmonary vasculature. Pleura: No pleural effusion or pneumothorax. Heart and mediastinum: The cardiomediastinal silhouette and great vessels are within normal limits. Osseous structures and soft tissues: No acute osseous abnormality is seen. Impression: Placement of a left pectoral subclavian dual-chamber pacer device with no complicating pneumothorax or other acute cardiopulmonary process identified. .
[2018-04-13] MEDS: LOVASTATIN 40 MG TABLET PO SCH (21:00)
[2018-04-13] MEDS: PAROXETINE 20 MG TABLET PO SCH (21:00)
[2018-04-14] MEDS: ACETAMINOPHEN 325 MG TABLET PO PRN ×2 (03:37→10:09)
[2018-04-14] MEDS: SALINE FLUSH 10ml SYRINGE IVF PRN (03:42)
[2018-04-14] MEDS: CHLORTHALIDONE 25 MG TABLET PO SCH (08:22)
[2018-04-14] MEDS: LISINOPRIL 40 MG TABLET PO SCH (08:22)
[2018-04-14] MEDS: ASPIRIN *EC* 81 MG TABLET PO SCH (08:23)
[2018-04-14] MEDS: LIRAGLUTIDE INJECTABLE PEN SQ SCH (08:23)
[2018-04-14] MEDS: INSULIN GLARGINE 100unit/ml INJECTION SQ SCH (08:24)
[2018-04-14] MEDS: CEFTRIAXONE 1 G in NS 100 ML IV SCH (08:53)
[2018-04-14] MEDS ORDERED: MINOCYCLINE 100 MG CAPSULE PO SCH (09:00)
--- NOTE | 2018-04-14 09:14 | XRay Report ---
Indication: ppm PROCEDURE: XR chest 2V: Encounter: Initial Comparison: 04/13/2018 Findings: There is a left subclavian dual-lead pacemaker in place. Heart size is normal. The lungs are clear. There is no focal opacity to suggest atelectasis or pneumonia. No mediastinal or hilar adenopathy. No pleural effusion. There is mild tortuosity of the descending thoracic aorta. There is moderate degenerative disc disease of the thoracic spine. IMPRESSION: No acute process. .
[2018-04-14] MEDS: INSULIN ASPART 100unit/ml INJECTION SQ SCH ×2 (09:16→12:36)
--- NOTE | 2018-04-14 10:01 | Progress Note ---
- Date 04/14/18 Subjective: Patient up to chair. Says she is doing well. Denies dysuria or frequency. Says she is eating and drinking well. Only question is when can she shower. Objective Vital signs: Temperature 98.9 F 04/14/18 03:46 Pulse Rate 69 04/14/18 08:00 Respiratory Rate 20 04/14/18 03:46 Blood Pressure 145/67 H 04/14/18 07:00 Pulse Oximetry 95 04/14/18 07:00 - Constitutional Present: no acute distress - Routine HEENT Exam Head: Present: normocephalic, atraumatic Eye: Present: EOMI, PERRL ENT: Present: mucous membranes moist - Routine Respiratory Exam Present: CTA bilaterally. Absent: accessory muscle use - Routine Cardiovascular Exam Present: RRR, S1, S2 - Routine Abdominal Exam Present: soft, normoactive bowel sounds - Routine Extremities Exam Present: no edema - Routine Neurological Exam Present: alert, oriented X3 - Routine Psychiatric Exam Present: normal affect Results - Labs CBC & Chem 7: 04/14/18 04:00 04/14/18 04:00 Assessment and Plan (1) Erika II Current visit: Yes Status: Acute Assessment and Plan: Impression UTI- E-Coli No evidence of SIRS/Sepsis at this time Leukocytosis (POA) - resolved Mobitz II New RBBB Elevated Troponin DM HTN Hyperlipidemia Morbid obesity Plan Cardiology care as per Dr Toussaint. s/p Pacemaker. Although patient repots she is asymptomatic regarding bacteruria however, will continue treatment as she had an invasive procedure. Change to Keflex. Patient has PCN allergy, but has tolerated ceftriaxone. Obtained Blood cultures x2 No evidence of acute sepsis process- No Leukocytosis or fever. Hgb A1C 9.8. Continue Novalog with meals, Victoza, Lantus 60 units daily. The hospitalist service will continue to follow patishira during her stay at [facility]. At time of discharge medical care will return to PCP Dr Almeida at [facility]. - Physician Narrative Narrative: Date: 04/14/18 Time: 09 Hospital Course Summary Disclaimer: The visit summary below is not to be considered part of the above Progress Note. Hospital Course: Impression Mobitz II New RBBB Elevated Troponin UTI- E-Coli DM HTN Hyperlipidemia Obesity Plan Cardiology care as per Dr Toussaint At this point they are planning for placement of Pacemaker Although patient repots she is asymptomatic regarding bacteruria however, will initiate treatment as she is having invasive procedure today Obtain Blood cultures x2 and Start Rocephin 1 gm IV daily for treatment. No evidence of acute sepsis process- No Leukocytosis or fever. Obtain Hgb A1C given hyperglycemia. Continue on Novalog with meals, Victoza, Lantus 60 units daily. Case reviewed with attending, Dr Krishna The hospitalist service will continue to follow yolanda during her stay at [facility] [place]. At time of discharge medical care will return to PCP Dr Almeida at [facility] 04/14 Cardiology care as per Dr Toussaint. s/p Pacemaker. Although patient repots she is asymptomatic regarding bacteruria however, will continue treatment as she had an invasive procedure. Change to Keflex. Patient has PCN allergy, but has tolerated ceftriaxone. Obtained Blood cultures x2 No evidence of acute sepsis process- No Leukocytosis or fever. Hgb A1C 9.8. Continue Novalog with meals, Victoza, Lantus 60 units daily.
[2018-04-14 11:41] VITALS: TEMP 98.8
[2018-04-14] MEDS ORDERED: CARVEDILOL 3.125 MG TABLET PO SCH (12:31)
--- NOTE | 2018-04-14 12:34 | Discharge Summary ---
Discharge Information Date of admission: 04/13/18 10:31 Anticipated date of discharge: 04/14/18 Attending Physician: Placido Toussaint MD Primary care physician: Donnell Almeida, - Discharge Diagnosis (1) NSTEMI (non-ST elevated myocardial infarction) Status: Acute (2) Second-degree heart block Status: Acute (3) Essential (primary) hypertension Status: Chronic (4) Mixed hyperlipidemia Status: Chronic (5) Type 2 diabetes mellitus without complications Status: Chronic NSTEMI, Second degree heart block, HTN, HLD, DM II - Procedures Procedures: Date of Exam: 04/12/18 Type of Exam(s): CA cardiovascular procedures DATE OF PROCEDURE April 12, 2018 The patient is a 57-year-old lady who was admitted with chest pressure, tightness and a heart block and ruled in for non-STEMI and was referred for further evaluation by cardiac catheterization and possible intervention. Informed consent was obtained after explaining the procedure and the potential risks to the patient who agreed to proceed with the procedure. PROCEDURE 1. Left heart catheterization. 2. Coronary angiography. 3. Left ventriculography. TECHNIQUE The patient was prepped and draped in the usual sterile techniques. Conscious sedation was performed using Versed and fentanyl. 1% lidocaine was used for local anesthesia. Using modified Seldinger technique, arterial access was obtained into the right radial artery with placement of a 6-Amharic arterial sheath. LEFT VENTRICULOGRAPHY Left ventriculography in single-plane ESPITIA shallow projection showed anteroapical akinesia with ejection fraction of about 40% with no mitral regurgitation or gradient across the aortic valve. LVEDP was about 8. CORONARY ANGIOGRAPHY Left main was short and free of significant lesions and bifurcated into left anterior descending and left circumflex arteries. Left anterior descending artery was a wlkot-vl-zwjvbh caliber vessel which had diffuse irregularities in mid segment with about 20-30% stenosis. Diagonals were small with no significant lesions. Left circumflex artery was nondominant with diffuse disease in mid segment of up to about 30% stenosis. It was nondominant. Right coronary artery was dominant and a lhqzti-mq-gakha caliber vessel with about 30 % mid stenosis. The patient tolerated the procedure well with no complications. IMPRESSION 1. Anteroapical akinesia with ejection fraction of about 40%. 2. Mild coronary artery disease as described above. PLAN Medical management. Dual chamber [employer] PPM insertion, report pending - Laboratory Labs: 04/14/18 04:00 04/14/18 04:00 History of Present Illness HPI: Annamaria is a 57 year old woman who presented to the ED this morning for evaluation of chest pain. She was working at [employer] earlier today, when she got into a verbal altercation with a co-worker. She became dyspneic, had palpitations, and her vision darkened. She has had symptoms like this before; several months ago, she had a similar incident and a subsequent cath, without significant disease. She reportedly is under a lot of stress at home and work. 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 EKG revealed 2:1 heart block, Dr. Toussaint was contacted for outpatient admission for possible permanent pacemaker insertion. She denies recent illness, fever, chills, cough, sore throat, N/V/D, dysuria. States she is to have a CT scan for an umbilical hernia repair. Hospital Course This is a general summary of the patient's hospital course. For more details refer to the complete medical record. Hospital course: 04/12/18 Second-degree heart block Current visit: Yes Status: Acute - 2:1 second degree heart block - Hemodynamically stable, admit to the Surgical unit - Keep NPO for dual chamber PPM this after noon - No BB or CCB - Monitor cardiac telemetry (2) Essential (primary) hypertension Current visit: Yes Status: Chronic - suboptimal control - Hydralazine 10mg IV q6h prn systolic BP>180 - will continue Lisinopril 40mg and Chlorthalidone 25mg post PPM (3) Mixed hyperlipidemia Current visit: Yes Status: Chronic - Continue Lovastatin, PCP manages (4) Type 2 diabetes mellitus without complications Current visit: Yes Status: Chronic - Continue Lantus and Victoza post PPM - BGMs as taken at home 04/13/18 NSTEMI: Chest pain resolved before presentation - Troponin trending down:1) 0.973, 2) 0.962, 3)0.499 - EK:1 AV Block, RBBB - LHC 04/12/18: Left main was short and free of significant lesions and bifurcated into left anterior descending and left circumflex arteries. Left anterior descending artery was a stjgk-vg-ogizbz caliber vessel which had diffuse irregularities in mid segment with about 20-30% stenosis. Diagonals were small with no significant lesions. Left circumflex artery was nondominant with diffuse disease in mid segment of up to about 30% stenosis. It was nondominant. Right coronary artery was dominant and a hzcecv-zf-uqhbi caliber vessel with about 30% mid stenosis. Anteroapical akinesia with ejection fraction of about 40%. - Continue Aspirin, ARB and Statin for medical management. - No BB due to 2:1 AV block Second degree heart block: Plan PPM this afternoon as previously planned -Preliminary urine culture resulted E-Coli today, however patient denies fever , chills, urgency, frequency or painful urination and no Leukocytosis to indicate bacteremia, likely external contamination from voided specimen. - Consulted hospitalist for their assistance. (Thank you Judy and Dr. Krishna) Blood cultures and Rocephin 1gram IV ordered. 04/14/18 - Continue Aspirin, ARB and statin. - Add Metoprolol 12.5mg now that patient is paced - Discharge to home today with RX for Keflex 500mg Q12H for 5 days for UTI and Minocycline 100mg BID for MRSA coverage prophylaxis S/P PPM insertion. - Incision check in 1 week with clinic MA Time spent with patient: 25 - 35 minutes Resuscitation Status: Full Code Exam Vital signs: Temperature 98.8 F 04/14/18 11:40 Pulse Rate 76 04/14/18 11:40 Respiratory Rate 18 04/14/18 11:40 Blood Pressure 137/66 04/14/18 11:40 Pulse Oximetry 98 04/14/18 11:40 - Constitutional no acute distress, well nourished, cooperative - Routine HEENT Exam Head: Present: normocephalic ENT: Present: mucous membranes moist - Routine Neck Exam Absent: JVD, carotid bruit - Routine Chest/Breast/Axilla Exam Chest wall: Present: tenderness, pacemaker - Routine Respiratory Exam Present: CTA bilaterally. Absent: dyspnea, rales, wheezes - Routine Cardiovascular Exam Present: RRR, no murmur - Routine Abdominal Exam Present: soft, non tender - Routine Extremities Exam Present: no edema, pulses intact - Routine Skin Exam Present: intact, dry, warm - Routine Neurological Exam Present: alert, oriented X3 - Routine Psychiatric Exam Present: normal affect, normal thought process Results 04/14/18 04:00 04/14/18 04:00 CBC 04/14/18 Range/Units 04:00 WBC 7.9 (4.5-11.0) T/MM3 RBC 4.57 (4.00-5.20) M/MM3 Hgb 13.1 (12-16) GM/DL Hct 39.1 (36-46) % Plt Count 256 (130-400) T/MM3 Neut # (Auto) 4.8 (1.8-7.7) T/MM3 Lymph # (Auto) 2.4 (1-4.8) T/MM3 Tift # (Auto) 0.6 (0-0.8) T/MM3 Eos # (Auto) 0.1 (0-0.5) T/MM3 Baso # (Auto) 0.0 (0-0.2) T/MM3 Comprehensive Metabolic Panel 04/14/18 Range/Units 04:00 Sodium 140 (136-146) MEQ/L Potassium 4.2 (3.6-5) MEQ/L Chloride 104 (98-107) MEQ/L Carbon Dioxide 26 (22-30) MEQ/L BUN 13.0 (7-17) MG/DL Creatinine 0.7 (0.7-1.2) mg/dL Glucose 220 H (65-110) MG/DL Calcium 8.8 (8.4-10.2) MG/DL Intake and Output 04/13/18 04/14/18 04/14/18 22:59 06:59 14:59 Intake Total 1780 / 1780 100 / 100 Output Total 900 / 900 250 / 250 Balance 880 / 880 -250 / -250 100 / 100 Intake: IV 500 / 500 100 / 100 Ceftriaxone 1 g In Ns 100 ml @ 100 / 100 200 mls/hr IV Q24H [facility] Rx#: [id number] Vancomycin 1,750 mg In NS 500ml 500 / 500 500 ml @ 250 mls/hr IV PREOP ONE Rx#:[id number] Oral 1280 / 1280 Output: Urine 900 / 900 250 / 250 Other: Urine Appearance Clear Clear Cloudy Urine Color Yellow Pale Yellow Urine Odor Normal Normal Stool Color Brown Stool Consistency Soft Formed Size of Bowel Movement Moderate # Voids 1 # Bowel Movements 1 - Imaging and Cardiology Imaging & Cardiology Narrative: Date of Exam: 04/14/18 Ordering Provider: Placido Toussaint MD Type of Exam(s): XR chest 2V Reason for Exam(s): ppm Indication: ppm PROCEDURE: XR chest 2V: Encounter: Initial Comparison: 04/13/2018 Findings: There is a left subclavian dual-lead pacemaker in place. Heart size is normal. The lungs are clear. There is no focal opacity to suggest atelectasis or pneumonia. No mediastinal or hilar adenopathy. No pleural effusion. There is mild tortuosity of the descending thoracic aorta. There is moderate degenerative disc disease of the thoracic spine. IMPRESSION: No acute process. . 04/14/18 12:35 - EKG Interpretation EKG: WNL (Vpaced) Discharge Plan - Med Rec/Dispo Referrals/Follow Up: Placido Toussaint MD [Physician] - 1 Week (incision check) Truvzina Instructions: [facility] Pacemaker Implantation, Pacemaker (DC) Prescriptions: New CephALEXin [Keflex 500 mg] 500 mg PO Q12HR #10 cap Metoprolol Tartrate [Lopressor] 12.5 mg PO BIDWM #30 tab Nitroglycerin [Nitrostat] 0.4 mg SL Q5M PRN #25 tab PRN Reason: Angina Minocycline [Minocin] 100 mg PO BID #14 cap Continue Lovastatin [Mevacor] 40 mg PO HS Aspirin [Adult Aspirin Regimen] 81 mg PO DAILY Insulin Aspart [NovoLOG] 9 - 15 unit SQ TIDWM Lisinopril [Prinivil] 40 mg PO DAILY Chlorthalidone [Hygroton] 25 mg PO DAILY Insulin Glargine,Hum.rec.anlog [Lantus] 60 unit SQ DAILY #0 Paroxetine [Paxil] 20 mg PO HS Liraglutide [Victoza 3-Johnny] 1 dose SQ DAILY - Disposition 01 Discharged Home, Self-Care - Dismissal Complete Discharge Instructions are:: Complete
--- NOTE | 2018-04-14 12:58 | Work/School Release ---
Work/School Release - Date Date: 04/14/18 - Work Release Remain off work/school for:: recent procedure Excused for:: 04/12/18- 04/17/18 May return to work on:: 04/18/18 with the following restrictions Restrictions:: No lifting more than 10 pounds, no pushing or pulling for 1 week. Do not operate machinery or drink alcohol for 2 days. No raising your left elbow over your shoulder for 3 weeks. No driving for 3 weeks. Wear your sling at night only for 3 weeks. May resume normal activity on:: 05/04/18
[2018-04-14 15:04] VITALS: BP 122/59; RESP 16; O2SAT 96
[2018-04-14 17:04] VITALS: PULSE 71
== END 2018-04-14 16:50 | disposition home or self-care (01) | DRG 243 ==
LOC: EDHOLD 08:28 → ED 08:28 → EDHOLD 11:00 → SRG 11:00
PROVIDERS: ADMIT Internal Medicine Cardiovascular Disease; ATTEND Internal Medicine Cardiovascular Disease